=== PATIENT | male | born 1990 | race African-American/Black ===

== ENCOUNTER 2023-07-21 14:51 | Emergency (ER) | payer OTHER ==
[2023-07-21 15:01] VITALS: BP 130/75; PULSE 58; RESP 20; TEMP 97.8; BMI 23.0
[2023-07-21] MEDS ORDERED: KETOROLAC TROMETHAMINE 30 MG/1 ML VIAL ONE (16:07)
[2023-07-21] MEDS: KETOROLAC TROMETHAMINE 30 MG/1 ML VIAL IVPUSH ONE (16:17)
[2023-07-21] MEDS ORDERED: TAMSULOSIN HCL 0.4 MG CAP ONE (16:20)
[2023-07-21 16:24] LABS: BASO % 0.3 % (0-2.0); HEMATOCRIT 41.6 % (35.4-49); HEMOGLOBIN 13.6 GM/dL (11.7-16.9); LYMPH % 8.3 % (8-40); MCH 26.7 pg (25.7-33.7); MCHC 32.8 g/dl (32.0-35.9); MEAN CELL VOLUME 81.6 fl (80-96); MEAN PLT VOLUME 8.3 fl (7.5-11.1); NEUT % 86.4 % (42.8-82.8); PLATELET COUNT 158 10^3/uL (134-434); RDW 14.8 % (11.9-15.9); WHITE BLOOD COUNT 11.8 K/mm3 (4.0-10.0)
[2023-07-21] MEDS: SODIUM CHLORIDE 0.9% 1000 ML INFUS.BAG IV ONE (16:24)
[2023-07-21] MEDS: TAMSULOSIN HCL 0.4 MG CAP PO ONE (16:24)
[2023-07-21 16:50] LABS: POTASSIUM 4.3 mmol/L (3.5-5.1)
[2023-07-21 16:52] LABS: CALCIUM 9.6 mg/dL (8.5-10.1)
[2023-07-21 16:53] LABS: ALBUMIN 4.1 g/dl (3.4-5.0); BLOOD UREA NITROGEN 15.6 mg/dL (7-18)
[2023-07-21 16:56] LABS: CREATININE 1.2 mg/dL (0.55-1.3)
[2023-07-21 16:57] LABS: BILIRUBIN,TOTAL 0.3 mg/dL (0.2-1)
[2023-07-21 16:58] LABS: TOT PROT 7.5 g/dl (6.4-8.2)
[2023-07-21 21:26] LABS: PH,URINE 5.5 (5.0-8.0); URINE APPEARANCE CLEAR; URINE BILIRUBIN NEGATIVE (NEGATIVE); URINE COLOR YELLOW; URINE GLUCOSE (UA) NEGATIVE (NEGATIVE); URINE KETONE TRACE (NEGATIVE); URINE LEUK ESTERASE 1+ (NEGATIVE); URINE NITRITE NEGATIVE (NEGATIVE); URINE PROTEIN 1+ (NEGATIVE); URINE UROBILINOGEN 0.2 mg/dL (0.2-1.0)
== END 2023-07-21 21:27 | disposition home or self-care (01) ==
LOC: JER 14:51
PROC: 3E0333Z Introduction of Anti-inflammatory into Peripheral Vein, Percutaneous Approach (ICD-10-PCS; principal; 2023-07-21)
DX: N20.0 Calculus of kidney (principal); R10.9 Unspecified abdominal pain
CPT/HCPCS: 36415; 74176-TC; 80053; 81003; 85025; 99284-25